=== PATIENT | female | born 1950 | race Caucasian/White ===

== ENCOUNTER 2016-08-16 08:00 | Inpatient (IN) | payer MEDICARE ==
--- NOTE | ~2016-08-16 | DS ---
Unit #: [id number] #: [id number] Patient: BANDAR SORENSEN [id number] [address] [address] [id number] I MR#: [id number] NAME: BANDAR SORENSEN ROOM: 450 Age: 66 Sex: F Admission Date: 08/16/2016 : 1950 Discharge Date: 08/19/2016 Attending Physician: Rashid Monzon M.D. Primary Care Physician: No Primary Care Physician DISCHARGE SUMMARY ADMITTING DIAGNOSIS Periprosthetic fracture, right femur, stress type. DISCHARGE DIAGNOSIS Periprosthetic fracture, right femur, stress type. PROCEDURES IN THE HOSPITAL None. HOSPITAL COURSE Patient was admitted on 08/16 after suffering severe pain in her right leg while at home transferring. She was admitted for pain control. Her CT scan showed a nondisplaced stress fracture, which already had cerclage wires in place. Her pain is subsiding and it is felt she can be discharged to rehab today. DISCHARGE INSTRUCTIONS 1. She is to remain nonweightbearing to toe-touch weightbearing in rehab. 2. Will check her pro-times on Tuesday and of next week. DISCHARGE MEDICATIONS She will be on: 1. Her pain medicine, which is [place] 10/325. 2. Coumadin 4 mg a day. CONDITION ON DISCHARGE Improved. DISPOSITION To rehab. Dictated by... Cleo Moy/zayda TD: 08/19/2016 10:12 JOB #: [id number] Unit #: [id number] #: [id number] Patient: BANDAR SORENSEN DISCHARGE SUMMARY X Rashid Monzon MD X DISCHARGE SUMMARY
--- NOTE | ~2016-08-16 | CT95 ---
[facility] A Service of [facility] & [facility] RADIOLOGY TEXT RESULTS PATIENT: BANDAR SORENSEN LOCATION: C4B 450-01 : 54 UNIT #: [id number] AGE: [address]: Rashid Monzon MD SEX: F ORDER DR: [id number] [facility] [address] [facility] [place], [place] [address] [id number] I MR#: [id number] Acc #: [id number] NAME: BANDAR SORENSEN : 1950 SEX: F STUDY DATE/TIME: 08/16/2016 18:11 UNIT: C4B ROOM: 450 STUDY DESCRIPTION: CT Lower Ext Rt Wo Cont Attending Physician: Rashid Monzon M.D. Ordering Physician: Rashid Monzon M.D. Primary Care Physician: Primary Care Physician No MEDICAL IMAGING REPORT This report is preliminary unless electronic signature is present EXAM CT right femur without contrast 08/16/2016 HISTORY 66-year-old female with right hip pain since 07/16/2016. Right hip hardware failure and periprostatic fracture. Patient is now status post revision right hip arthroplasty and proximal femur fixation. TECHNIQUE Helical scan performed through the right femur without IV contrast. Coronal and sagittal reformatted images. Metal reduction techniques were maximized. This CT examination was performed with one or more of the following radiation dose reduction techniques: automatic exposure control, adjustment of mA and/or kV according to patient size, and iterative reconstruction. FINDINGS There are postsurgical changes from revision right hip arthroplasty. There is a buttressing bone graft along the lateral aspect of the proximal femoral shaft with multiple cerclage wires. There is a nondisplaced stellate fracture involving the proximal femoral shaft at the level of the distal tip of the femoral component. No evidence of hardware loosening. The right hip is normally located. No significant right hip effusion. No soft tissue fluid collections are identified. There is generalized atrophy in the right quadriceps musculature. Small right knee effusion. Right knee arthroplasty is again noted. IMPRESSION 1. Postsurgical changes from recent right hip arthroplasty revision and proximal femoral shaft fracture fixation. There is a nondisplaced stellate fracture involving the proximal femoral shaft located at the level of the distal tip of the femoral prosthesis. No evidence of hardware loosening. [facility]. [facility] A Service of [facility] RADIOLOGY TEXT RESULTS PATIENT: BANDAR SORENSEN LOCATION: C4B 450-01 : 54 UNIT #: [id number] AGE: [address]: Rashid Monzon MD SEX: F ORDER DR: 2. No right hip effusion or drainable soft tissue fluid collections. 3. Right knee arthroplasty. Dictated by... Umesh Powell M.D. THIS IS AN ELECTRONICALLY VERIFIED REPORT Umesh Powell M.D. at 08/18/2016 3:56 PM OLGA/justin TD: 08/17/2016 12:03 JOB #: [id number] MEDICAL IMAGING REPORT COPY
--- NOTE | ~2016-08-16 | CR104 ---
[facility] A Service of [facility] RADIOLOGY TEXT RESULTS PATIENT: BANDAR SORENSEN LOCATION: C4B 450-01 : 54 UNIT #: [id number] AGE: [address]: Rashid Monzon MD SEX: F ORDER DR: [id number] [facility] [address] [facility]. [place], [place] [address] [id number] I MR#: [id number] Acc #: [id number] NAME: BANDAR SORENSEN : 1950 SEX: F STUDY DATE/TIME: 08/16/2016 18:43 UNIT: C4 ROOM: [facility] STUDY DESCRIPTION: CR Femur 1 View Rt Attending Physician: Rashid Monzon M.D. Ordering Physician: Rashid Monzon M.D. Primary Care Physician: Primary Care Physician No MEDICAL IMAGING REPORT This report is preliminary unless electronic signature is present EXAM Right femur, 08/16/2016 INDICATIONS 66-year-old female with a history of pain, cannot move the right leg for a month. Hardware failure, right hip surgery a month ago. TECHNIQUE Frontal view of the right femur was performed. COMPARISON 07/19/2016 FINDINGS The patient is status post total right hip replacement. Cerclage wires are associated with the femoral component of the appliance and there is a lateral fixation plate associated with the proximal aspect of the femur. There appears to be a lucent stellate fracture through the proximal to middle-third shaft femur, best seen on the more inferiorly positioned frontal image. Please see the separately dictated CT of the right femur, same date, for further details. There are advanced degenerative changes of the right knee and there is postoperative change of at least partial right knee replacement. IMPRESSION 1. Findings suspicious for a nondisplaced stellate fracture through the proximal to mid-third shaft right femur. Please see the separately dictated CT right femur, same date, for further details. 2. Surgical hardware in place as described. The bones are osteoporotic. 3. Advanced degenerative change of the right knee. Status post at least partial right knee replacement. [facility] A Service of [facility] RADIOLOGY TEXT RESULTS PATIENT: BANDAR SORENSEN LOCATION: [facility] 450- : 54 UNIT #: [id number] AGE: [address]: Rashid Monzon MD SEX: F ORDER DR: Dictated by... Aric Beck M.D. THIS IS AN ELECTRONICALLY VERIFIED REPORT Aric Beck M.D. at 08/17/2016 10:19 AM JAJA/dima TD: 08/17/2016 02:33 JOB #: [id number] MEDICAL IMAGING REPORT COPY
[~2016-08-16 08:00] MED LIST: HYDROCODON-ACE1 EAC7 PO
[2016-08-16] MEDS ORDERED: COUMADIN3 MG PO (09:31)
[2016-08-16] MEDS ORDERED: HYDROCODON-ACE1 EAC7 PO (11:43)
[2016-08-16] MEDS ORDERED: NORCO 10/3251 TAB PO (12:29)
[2016-08-17 03:46] LABS: PROTHROMBIN TIME (PATIENT) 21.9 SECONDS (9.6-11.5)
[2016-08-18 04:35] LABS: INR 1.6; PROTHROMBIN TIME (PATIENT) 17.2 SECONDS (9.6-11.5)
== END 2016-08-19 14:15 | DRG 544 ==
LOC: C4B 08:00
PROVIDERS: Orthopaedic Surgery
DX: M84.351A Stress fracture, right femur, initial encounter for fracture (principal); I10 Essential (primary) hypertension; M06.9 Rheumatoid arthritis, unspecified; Z96.641 Presence of right artificial hip joint
CPT/HCPCS: 73551; 73700; 85610; 97163; 97530; G8978-GP; G8979-GP; G8980-GP

== ENCOUNTER 2016-10-25 08:43 | Inpatient (IN) | payer MEDICARE ==
--- NOTE | ~2016-10-25 | DS ---
Unit #: [id number] #: [id number] Patient: BANDAR SORENSEN [id number] [facility] [address] [facility]. [place], [place] [address] [id number] I MR#: [id number] NAME: BANDAR SORENSEN ROOM: [facility] Age: 66 Sex: F Admission Date: 10/25/2016 : 1950 Discharge Date: Attending Physician: Rashid Monzon M.D. Referring Physician: Rashid Monzon M.D. Primary Care Physician: Generic Doctor Not In System DISCHARGE SUMMARY Date of discharge planned for 10/29/2016. ADMITTING PHYSICIAN Dr. Rashid Monzon. CONSULT PHYSICIAN HIPS for medical management. REASON FOR ADMISSION Periprosthetic fracture right femur with angulation. PROCEDURE Revision right total hip with long stem. HOSPITAL COURSE The patient was admitted to [facility] with a history of stress fracture right femur at the tip of the femoral stem of her right total hip. The patient ultimately had undergone a right total hip revision surgery with a long stem. The patient has recovered a little slow but does seem to be doing much better today. The patient is toe touch weightbearing. Today, her vital signs are temperature 98, blood pressure 97/38, heart rate 72, respirations 18. Her incision is healing well. Neurovascular exam is intact. She has 2+ pulses in the lower extremity. Again, the patient has been working with physical therapy and is toe touch weightbearing. The plan is to send the patient home tomorrow. This is at the request of the patient. The only way we will send her home is if she is safe with physical therapy and cleared medically for home tomorrow. The patient will be on Coumadin. Dose will be adjusted in the morning. DISPOSITION Home. She will need to go by ambulance for medical necessity. PERTINENT LABS Her PT was 20.5. INR today is 1.9. WBC 6.9. Hemoglobin is 8.5. MEDICATIONS She will be on her regular home medications with the addition of Coumadin and [place] for pain control. FOLLOWUP INSTRUCTIONS 1. The patient will be followed by [facility]. 2. She will need PT and INR on 10/29, 11/01, 11/04, 11/08, 11/11, 11/16 Unit #: [id number] #: [id number] Patient: BANDAR SORENSEN and 11/18. Call the office at [phone] or fax to Robert at [phone]. 3. The patient will need skin kameron removed on 11/08/2016 and Steri-Strips placed 1/4" apart for one week. 4. The patient is toe touch weightbearing right lower extremity. 5. The patient should wear MIRA hose during the day and off at night. 6. The patient should not shower until the day after kameron removed. 7. The patient will continue physical therapy for safety, home knowledge, home exercise program, dislocation precaution and progressive ambulation. 8. The patient will definitely be on a walker and toe touch weightbearing. 9. We will see the patient back in the office in four weeks. Dictated by... Khoa Chun P.A.-C- for Cleo Moy TD: 10/28/2016 13:14 JOB #: [id number] DISCHARGE SUMMARY Page 1 of 1 X X DISCHARGE SUMMARY
--- NOTE | ~2016-10-25 | OR ---
Unit #: [id number] #: [id number] Patient: BANADR SORENSEN [id number] [address] [place], [place] [address] [id number] I MR#: [id number] NAME: BANDAR SORENSEN ROOM: [facility] Date of Procedure: 10/25/2016 Admission Date: 10/25/2016 Surgeon: Rashid Monzon M.D. : 1950 Attending Physician: Rashid Monzon M.D. Referring Physician: Rashid Monzon M.D. OPERATIVE REPORT PREOPERATIVE DIAGNOSIS Periprosthetic femur fracture with angulation. POSTOPERATIVE DIAGNOSIS Periprosthetic femur fracture with angulation. PROCEDURE PERFORMED Revision of right total hip long stem. ASSISTANTS Lise Stewart and Aidan Maldonado. ANESTHESIA General. ESTIMATED BLOOD LOSS 800 mL. INDICATIONS FOR PROCEDURE This patient had a periprosthetic femur fracture that was treated with cerclage wires and strut grafting. She had a secondary twisting injury and now has an angulated deformity at the tip of her previous stem. She continues to have pain, could not ambulate, so she was brought to the hospital for conversion to a long stem. DESCRIPTION OF PROCEDURE The patient was brought to the holding room, given 1500 mg of vancomycin. This will be continued postop, but discontinued within 23 hours. She was then given general anesthetic and placed in decubitus position with the right side up. The right leg was prepped and draped in a sterile fashion. After this was done, the previous skin incision was used and extended distally. The subcutaneous dissected away. The fascia split longitudinally and then the vastus lateralis was split, and strut grafts were identified. The previous cerclage wires were removed. The strut grafts were removed and then the patient had an extended trochanteric osteotomy performed to the fracture. After this was done, the patient then had her previous component removed along with the cement. The cup appeared to be in good position and the polyethylene was not worn. This was a 28 mm head. We then reamed distally. We elected to use a fully porous coated AML stem, because the canal was quite small and the larger stem, . We then reamed the distal fragment with reamers up to a 13.5. At this point, we then opened the 8 inch 13.5 fully porous coated Unit #: [id number] #: [id number] Patient: BANDAR SORENSEN. We seated this into the distal fragment with the proper anteversion. It appeared to be quite proper We placed two cerclage wires around the proximal portion of the distal fracture. We re-wired the femur around the stem and an x-ray was obtained, that showed that the stem with standard head had appropriate leg length. The stability was gently tested and found to be appropriate. We then dislocated the hip, placed 28 standard head on the stem and was reduced. The wound was irrigated with bacitracin. The ropivacaine mixture was injected, and we then placed 60 mL cancellous chips in the osteotomy site and removed wire through the fibular strut grafts back around the midportion of the femur. The capsule was closed with 0 Vicryl. The vastus lateralis was closed with a running 0 Vicryl and passed it distally with a running 0 Vicryl and possibly with a #1 STRATAFIX suture. The subcutaneous was closed with 0 and 2-0 Vicryl, kameron in the skin. Sterile dressing was applied. Abduction pillow positioned, and general anesthetic reversed. compliance assistant, Lise Stewart was present throughout the entire case. Dictated by... Cleo Moy/tyron TD: 10/26/2016 02:45 JOB #: [id number] OPERATIVE REPORT Page 1 of 1 X Rashid Monzon MD PROCEDURE OPERATIVE NOTE
--- NOTE | ~2016-10-25 | CR145 ---
[facility] A Service of [facility] & [facility] RADIOLOGY TEXT RESULTS PATIENT: BANDAR SORENSEN LOCATION: [place] [address]-01 : [birth year] UNIT #: [id number] AGE: [address]: Rashid Monzon MD SEX: F ORDER DR: [id number] [facility] [address]. [place], [place] [address] [id number] I MR#: [id number] Acc #: [id number] NAME: BANDAR SORENSEN : 1950 SEX: F STUDY DATE/TIME: 10/25/2016 18:28 UNIT: [facility] ROOM: [facility] STUDY DESCRIPTION: CR Hip 1 View Rt Attending Physician: Rashid Monzon M.D. Referring Physician: Rashid Monzon M.D. Ordering Physician: Rashid Monzon M.D. Primary Care Physician: Generic Doctor Not In System MEDICAL IMAGING REPORT This report is preliminary unless electronic signature is present EXAM Right hip 10/25/2016 HISTORY 66-year-old female postop right hip arthroplasty revision. COMPARISON Right hip 10/25/2016 FINDINGS Single AP view of the right hip demonstrates revision arthroplasty of the right hip, which spans a fracture of the proximal femoral shaft. No evidence of hardware complication. Surgical drains and skin clips overlie the operative field. IMPRESSION Stable postoperative changes status post revision right hip arthroplasty. Dictated by... Umesh Powell M.D. THIS IS AN ELECTRONICALLY VERIFIED REPORT Umesh Powell M.D. at 10/26/2016 4:44 PM OLGA/al TD: 10/26/2016 00:22 JOB #: [id number] MEDICAL IMAGING REPORT Page 1 of 1 COPY
--- NOTE | ~2016-10-25 | CR151 ---
[facility] A Service of [facility] & [facility] RADIOLOGY TEXT RESULTS PATIENT: BANDAR SORENSEN LOCATION: [place] [address]- : 52 UNIT #: [id number] AGE: [address]: Rashid Monzon MD SEX: F ORDER DR: [id number] [facility] [address] [facility]. [place], [place] [address] [id number] O MR#: [id number] Acc #: [id number] NAME: BANDAR SORENSEN : 1950 SEX: F STUDY DATE/TIME: 10/25/2016 10:11 UNIT: [facility] ROOM: STUDY DESCRIPTION: CR Hip Min 2 Views Rt Attending Physician: Rashid Monzon M.D. Referring Physician: Rashid Monzon M.D. Ordering Physician: Rashid Monzon M.D. Primary Care Physician: Generic Doctor Not In System MEDICAL IMAGING REPORT This report is preliminary unless electronic signature is present EXAM Right hip HISTORY Preop right hip surgery. Symptoms began 4 months ago. Fell. Right hip replacement. Right hip/femur fracture and surgery. FINDINGS AP radiograph of the pelvis presented with frog leg views of the right hip and femur. The distal femur is not included in all case of view. Comparison 08/24/2016. I believe there is acute on chronic fracture at junction of the proximal and middle thirds of the right femur at the level of the lowest/most distal preexisting cerclage wire at this location. The acute fracture shows distraction by about up to 1 cm and there is moderate medial angulation of the distal fracture fragment. There is evidence of prior bone graft placement along the proximal femur. There is evidence of callus formation at the fracture plane. Status post bilateral hip arthroplasty. The orthopedic hardware at level of the bilateral hips appears intact and normally aligned. The bony ring of pelvis is intact. Chronic changes in the left acetabulum. The periarticular soft tissues show some evidence of edema on the right. The visualized bowel gas pattern is normal. Multiple calcified phleboliths in the pelvis. Dictated by... Fran Delgado M.D. THIS IS AN ELECTRONICALLY VERIFIED REPORT Fran Delgado M.D. at 10/26/2016 3:50 PM TATI/justin [facility] A Service of [facility] & [facility] RADIOLOGY TEXT RESULTS PATIENT: BANDAR SORENSEN LOCATION: [place] [address] : [birth year] UNIT #: [id number] AGE: [address]: Rashid Monzon MD SEX: F ORDER DR: TD: 10/25/2016 12:01 JOB #: [id number] MEDICAL IMAGING REPORT Page 1 of 1 COPY
--- NOTE | ~2016-10-25 | XA166 ---
[facility] A Service of [facility] & [facility] RADIOLOGY TEXT RESULTS PATIENT: BANDAR SORENSEN LOCATION: C4B 451 : 52 UNIT #: [id number] AGE: [address]: Rashid Monzon MD SEX: F ORDER DR: [id number] [facility] [address] [facility]. [place], [place] [address] [id number] I MR#: [id number] Acc #: [id number] NAME: BANDAR SORENSEN : 1950 SEX: F STUDY DATE/TIME: 10/27/2016 10:27 UNIT: C4 ROOM: [facility] STUDY DESCRIPTION: XA PICC Line Placement WO Port Attending Physician: Rashid Monzon M.D. Referring Physician: Rashid Monzon M.D. Ordering Physician: Ed Doctor [id number] [facility] Primary Care Physician: [facility] Doctor Not In System MEDICAL IMAGING REPORT This report is preliminary unless electronic signature is present EXAM PICC line placement INDICATION IV antibiotics. PRE-PROCEDURE The procedure was explained to the patient and/or patient electroplating sales representative including risks, benefits, potential complications and potential for alternative forms of treatment. Informed consent was obtained, and prior to initiating the procedure a formal timeout procedure was performed. PROCEDURE Using full standard sterile barrier technique, including caps, gowns, gloves, masks, as well as sterile skin preparation and standard sterile draping, the right arm was prepped and draped in the usual fashion, and real-time sterile ultrasound guidance was used to localize an arm vein and to confirm vessel patency. A hard copy ultrasound image was recorded. After local anesthesia with 1% Xylocaine, the vein was punctured using real-time sterile ultrasound guidance, and an 0.018 guidewire was advanced into the superior vena cava, using fluoroscopic guidance. A 37 cm double-lumen 5-Occitan PICC was then measured and deployed with the tip positioned in the superior vena cava. The position of the line was documented with a radiographic image. The line was secured in place with an adhesive dressing and an antibiotic patch was applied. Total fluoro time was 0.2 minutes. A single fluoroscopic spot image was obtained. The reference air kerma is 3 mGy/cm. IMPRESSION 1. Successful placement of a 38 cm double lumen 5-Occitan Power PICC via the right arm under ultrasound and fluoroscopic guidance. The tip of [facility] A Service of [facility] RADIOLOGY TEXT RESULTS PATIENT: BANDAR SORENSEN LOCATION: [place] [address] : [birth year] UNIT #: [id number] AGE: [address]: Rashid Monzon MD SEX: F ORDER DR: the PICC is in good position in the superior vena cava. 2. A single fluoroscopic spot image was obtained. Dictated by... Prieto Young M.D. THIS IS AN ELECTRONICALLY VERIFIED REPORT Prieto Young M.D. at 10/28/2016 4:52 PM ARLINE/stevenson TD: 10/27/2016 19:28 JOB #: [id number] MEDICAL IMAGING REPORT Page 1 of 1 COPY
--- NOTE | ~2016-10-25 | CR145 ---
[facility] A Service of [facility] & [facility] RADIOLOGY TEXT RESULTS PATIENT: BANDAR SORENSEN LOCATION: C4B 451-01 : [birth year] UNIT #: [id number] AGE: [address]: Rashid Monzon MD SEX: F ORDER DR: [id number] [facility] [address] [facility]. [place], [place] [address] [id number] I MR#: [id number] Acc #: [id number] NAME: BANDAR SORENSEN : 1950 SEX: F STUDY DATE/TIME: 10/25/2016 16:11 UNIT: [facility] ROOM: [facility] STUDY DESCRIPTION: CR Hip 1 View Rt Attending Physician: Rashid Monzon M.D. Referring Physician: Rashid Monzon M.D. Ordering Physician: Rashid Monzon M.D. Primary Care Physician: Generic Doctor Not In System MEDICAL IMAGING REPORT This report is preliminary unless electronic signature is present EXAM Right hip series 10/25/2016 HISTORY Right hip pinning. FINDINGS 2 AP radiographs of the right hip and femur are presented. Comparison 10/25/2016 1011 hours. The patient is undergoing revision of prior open reduction internal fixation right mid femoral fracture. Patient is status post prior right hip arthroplasty. The femoral stem component has been replaced with a longer stem spanning the mid femoral shaft fracture plane. The femoral shaft fracture fragments appear in near-anatomic alignment on these images. Multiple cerclage wires along the proximal to mid femoral shaft. The ball component of the femoral stem does not appear to be in place at this time. The acetabular component of right hip arthroplasty is unchanged. Open surgical bed along the proximal to mid femur. No new bony abnormality. Dictated by... Fran Delgado M.D. THIS IS AN ELECTRONICALLY VERIFIED REPORT Fran Delgado M.D. at 10/26/2016 3:50 PM TATI/justin TD: 10/26/2016 12:44 JOB #: [id number] MEDICAL IMAGING REPORT Page 1 of 1 COPY
--- NOTE | ~2016-10-25 | CO ---
Unit #: [id number] #: [id number] Patient: BANDAR SORENSEN [id number] [facility]. [place], [place] [address] [id number] O MR#: [id number] NAME: BANDAR SORENSEN ROOM: Age: 66 Sex: F Admission Date: 10/25/2016 : 1950 Attending Physician: Rashid Monzon M.D. Primary Care Physician: Generic Doctor Not In System Requesting Physician: Rashid Monzon M.D. Consultation Date: 10/25/2016 CONSULTATION REPORT REASON FOR CONSULTATION Preoperative evaluation. HISTORY OF PRESENT ILLNESS The patient is a 66-year-old female with a past medical history of hypertension, hyperlipidemia, chronic anemia, CHF, diabetes, rheumatoid arthritis, psoriatic arthritis, GERD, osteoarthritis, Borjas palsy, who is being seen in the preop area for preop evaluation. The patient is scheduled for revision of right total hip this afternoon. Of note, the patient was hospitalized at [facility] August 16 through August 19, 2016, for periprosthetic fracture of the right femur. She was admitted for pain control and discharged to rehab. The patient states that she followed up with Dr. Monzon and was noted to have a displaced fracture although she has been non-weight bearing for several months. She states that she has had pain in the right hip. Otherwise, she denies any fever. No cough or cold symptoms, no chest pain, no difficulty breathing. She does have palpitations that are not a new problem. She states she has had decreased appetite and may have lost a few pounds. She denies any constipation or diarrhea, no urinary symptoms, no blood in the stool or black, tarry stool. She denies ever having problems with anesthesia. 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 She denies any blood in the stool or black, tarry stool. She denies ever being told that she has sleep apnea. She has never had a sleep study. PAST MEDICAL HISTORY 1. Admission to [facility] August 16 through August 19, 2016, for periprosthetic fracture involving the right femur. She was admitted for pain control and discharged to rehab. 2. Congestive heart failure. The patient states that at the age of 30 she was possibly told that she was "retaining fluid." She was seen in consultation by cardiology on July 16, 2016, for cardiac clearance. An echocardiogram was done. There are no results in [employer]. She was cleared from their standpoint at that time. The patient had an echocardiogram July 09, 2016, that was technically limited but showed an ejection fraction of 50% to 55% with moderate septal hypokinesis and no significant valvular heart disease. 3. 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 4. Diabetes with a hemoglobin A1c of 6.5 on July 16, 2016. 5. Rheumatoid arthritis, followed by a data solutions architect in [place]. 6. Psoriatic arthritis. 7. Hypertension. 8. Hyperlipidemia. Unit #: [id number] #: [id number] Patient: BANDAR SORENSEN 9. GERD. 10. Osteoarthritis. 11. 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 PAST SURGICAL HISTORY 1. Right total hip arthroplasty. 2. Left total hip arthroplasty with three (1) revisions. 3. Right total knee arthroplasty. 4. Bilateral ankle arthroplasties. 5. Dental surgery. SOCIAL HISTORY The patient lives with her . There is no tobacco or alcohol use. She has been non-weight bearing for several months. She denies tobacco or alcohol use. FAMILY HISTORY Notable for her dad having myocardial infarction in his 60s. He also had lung cancer. Her mother had ovarian cancer. ALLERGIES Phenothiazines, sulfa, Keflex, erythromycin, clavulanic acid, iodine, amoxicillin, dextromethorphan, promethazine, Bystolic, latex. MEDICATIONS Home medications include: 1. Xanax. 2. Hydrocodone. 3. Acetaminophen. 4. Flonase. 5. Lopressor. 6. Plaquenil. 7. Catapres. 8. Folic acid. 9. Relafen. 10. Pravachol. 11. Protonix. REVIEW OF SYSTEMS A complete review of systems is negative except as indicated in the HPI. The patient states that her Relafen was discontinued per Dr. Monzon's order in preparation for surgery. DIAGNOSTIC STUDIES CARDIOVASCULAR: There is an EKG from July 19, 2016, that showed normal sinus rhythm with a rate of 100 beats/minute. LABORATORY: Labs are pending. PHYSICAL EXAMINATION VITAL SIGNS: Temperature is 96.9, heart rate 66, respirations 18, blood pressure 146/58. Oxygen saturation was 100% on room air. GENERAL: The patient is a very pleasant female who is awake and alert, in no acute distress. HEENT: The head is atraumatic. Mucous membranes are moist. NECK: Supple. Trachea is midline. CARDIOVASCULAR: Regular rate and rhythm. LUNGS: Clear to auscultation bilaterally with no increased work of Unit #: [id number] #: [id number] Patient: BANDAR SORENSEN breathing. ABDOMEN: Soft, nontender, with bowel sounds present in all four quadrants. EXTREMITIES: The right lower extremity is in a knee immobilizer. NEURO: The patient is awake and alert. She follows commands. PSYCH: Mood and affect are normal. The patient is cooperative. SKIN: Skin of examined areas is warm and dry. ASSESSMENT The patient is a 66-year-old female with: 1. Fracture of the right femur: The patient's revised Barrios Cardiac Risk Index is consistent with a 1% rate of cardiac nonfatal myocardial infarction and nonfatal cardiac risk based on the history of congestive heart failure. The patient was seen by cardiology in June 2016, and was cleared from a cardiac standpoint. Her ejection fraction in June was noted to be 50% to 55%. 2. Hypertension. 3. Hyperlipidemia. 4. Chronic anemia: The patient's hemoglobin was 9.4 on July 22, 2016. It is 9.4 today. 5. Congestive heart failure with an ejection fraction of 50% to 55% noted on echocardiogram in June 2016. 6. Diabetes with a hemoglobin A1c of 6.5 on July 16, 2016. 7. Rheumatoid arthritis, maintained on Plaquenil and Relafen, followed by data solutions architect in [place]. 8. Psoriatic arthritis. 9. Gastroesophageal reflux disease. 10. Osteoarthritis. 11. Borjas palsy. 12. Increased risk of obstructive sleep apnea. PLAN 1. Regarding the surgery planned for this afternoon, the patient's revised Barrios Cardiac Risk Index is as discussed above. She was cleared by cardiology in June. An EKG is currently pending. 2. Regarding diabetes, I have ordered low dose sliding scale insulin as well as Accu-Cheks. 3. Regarding increased risk of obstructive sleep apnea, I have ordered the obstructive sleep apnea protocol. Thank you very much for the consultation. We will follow the patient along closely with you. Dictated by... Cleo Mendez/jodie TD: 10/25/2016 11:35 JOB #: [id number] Unit #: [id number] #: [id number] Patient: BANDAR SORENSEN CONSULTATION REPORT Page 1 of 1 X Mary Shukla MD X CONSULTATION REPORT
--- NOTE | ~2016-10-25 | EKG ---
PATIENT: BANDAR SORENSEN UNIT #: [id number] Ventricular Rate: 74 BPM Atrial Rate: 74 BPM P-R Interval: 174 ms QRS Duration: 90 ms Q-T Interval: 430 ms QTC Calculation(Bezet): 477 ms P Burton: 21 degrees Calculated R Burton: -13 degrees Calculated T Burton: 31 degrees Diagnosis Line: Normal sinus rhythm Diagnosis Line: Normal ECG Diagnosis Line: When compared with ECG of 19-JUL-2016 15:11, Diagnosis Line: No significant change was found Diagnosis Line: Confirmed by LIZABETH BOUCHER MD ([id number]) on 10/27/2016 Diagnosis Line: 9:45:20 AM INTERPRETING MD: SANDER WHITE
--- NOTE | ~2016-10-25 | XA166 ---
[facility] A Service of [facility] & [facility] RADIOLOGY TEXT RESULTS PATIENT: BANDAR SORENSEN LOCATION: C4B 451 : [birth year] UNIT #: [id number] AGE: [address]: Rashid Monzon MD SEX: F ORDER DR: [id number] [facility] [address]. [place], [place] [address] [id number] I MR#: [id number] Acc #: [id number] NAME: BANDAR SORENSEN : 1950 SEX: F STUDY DATE/TIME: 10/25/2016 10:22 UNIT: C4 ROOM: [facility] STUDY DESCRIPTION: XA PICC Line Placement WO Port Attending Physician: Rashid Monzon M.D. Referring Physician: Rashid Monzon M.D. Ordering Physician: Rashid Monzon M.D. Primary Care Physician: Alisa Not Listed MEDICAL IMAGING REPORT This report is preliminary unless electronic signature is present EXAM Left-sided PICC line placement. INDICATION Need for IV access in a patient who is to undergo right hip surgery on October 25, 2016. PROCEDURE The procedure was explained to the patient including risks, benefits, potential complications, and potential for alternative forms of treatment. Informed consent was obtained and prior the patient initiating the procedure, a formal time-out procedure was performed. Using all elements of maximal sterile barrier technique including hand hygiene, caps, sterile gowns, and gloves and masks, the right arm was prepped with 2% chlorhexidine for cutaneous antisepsis and covered with a large sterile sheet. Real-time sterile ultrasound guidance was used to localize the right basilic vein which was found be patent and compressible. Hard copy ultrasound image was obtained. After local anesthesia with 1% Xylocaine, the vein was punctured using real time sterile ultrasound guidance, however, I was unable to advance a wire through this vessel despite multiple efforts. Patient's right brachial vein is of extremely small caliber. At this point, I turned my attention to the left arm. Again, using all elements of maximal sterile barrier technique, including hand hygiene, caps, sterile gowns, and gloves and masks, the left arm was prepped with 2% chlorhexidine for cutaneous antisepsis and covered with a large sterile sheet. Real-time sterile ultrasound guidance was used to localize the left basilic vein which was found to be patent and compressible. A hard copy ultrasound image was obtained. After local anesthesia with 1% Xylocaine, a vein was punctured using real-time sterile ultrasound guidance. An 0.018 guidewire was advanced into the left axillary vein. I was unable to advance the wire any further despite multiple efforts. A peel-away sheath was placed and STS. [facility] A Service of [facility] RADIOLOGY TEXT RESULTS PATIENT: BANDAR SORENSEN LOCATION: [place] [address] : [birth year] UNIT #: [id number] AGE: [address]: Rashid Monzon MD SEX: F ORDER DR: the catheter was advanced over the wire and positioned within the left axillary vein. Following placement it flushed and aspirated easily. Total fluoroscopy time 0.3 minutes. AK was 2 mGy. IMPRESSION Successful placement of a left-sided PICC line which terminates within the left axillary vein. Ultrasound and fluoroscopy where used during the placement of the catheter and permanent images were saved. Dictated by... Cathie Donovan M.D. THIS IS AN ELECTRONICALLY VERIFIED REPORT Cathie Donovan M.D. at 10/26/2016 4:56 PM AFF/tito TD: 10/26/2016 10:56 JOB #: [id number] MEDICAL IMAGING REPORT Page 1 of 1 COPY
[~2016-10-25 08:43] MED LIST changes: +COUMADIN3 MG PO; +NORCO 10/3251 TAB PO
[2016-10-25 10:17] LABS: BASOPHIL# 0.1 X10e3 (0-0.3); BASOPHIL% 0.6 % (0-2.5); EOSINOPHIL# 0.3 X10e3 (0-0.7); EOSINOPHIL% 3.5 % (0.0-7.0); HEMATOCRIT 30.9 % (35.0-45.0); HEMOGLOBIN 9.4 gm/dL (12.0-16.0); LYMPHOCYTE# 1.5 X10e3 (1.0-3.5); LYMPHOCYTE% 14.9 % (17.0-45.0); MEAN CELL VOLUME 78.4 FL (83-96); MEAN CORPUSCULAR HEMOGLOBIN 23.9 PG (28-34); MEAN CORPUSCULAR HGB CONC 30.5 g/dL (30-36); MEAN PLATELET VOLUME 8.9 FL (6.5-11.5); MONOCYTE# 0.7 X10e3 (0-1.0); MONOCYTE% 6.6 % (3.0-12.0); NEUTROPHIL# 7.4 X10e3 (1.5-7.1); NEUTROPHIL% 74.4 % (40-75); PLATELET COUNT 236 X10e3 (140-420); RED BLOOD COUNT 3.94 X10e (3.90-5.30); RED CELL DISTRIBUTION WIDTH 17.7 % (11.0-15.5)
[2016-10-25 10:18] LABS: DIFF IND NO
[2016-10-25 10:31] LABS: PROTHROMBIN TIME (PATIENT) 10.7 SECONDS (9.6-11.5)
[2016-10-25 10:41] LABS: BILIRUBIN,TOTAL 0.2 mg/dL (0.2-2.0); CALCIUM SERUM 9.3 mg/dL (8.4-10.2); CREATININE SERUM 1.1 mg/dL (0.6-1.4); POTASSIUM 4.1 mmol/L (3.5-5.1); PROTEIN TOTAL SERUM 6.8 g/dL (6.0-8.3)
[2016-10-25 10:43] LABS: URINE SOURCE CATH
[2016-10-25 10:51] LABS: CULTURE INDICATED? YES; URINE APPEARANCE CLEAR; URINE BACTERIA AUWI 4+ (NEGATIVE); URINE BILIRUBIN NEG (NEG); URINE BLOOD 1+ (NEG); URINE COLOR YELLOW; URINE GLUCOSE NEG (NEG); URINE KETONE NEG (NEG); URINE LEUKOCYTE ESTERASE 1+ (NEG); URINE NITRATE POS (NEG); URINE PROTEIN NEG (NEG); URINE SPECIFIC GRAVITY 1.019 (1.003-1.035); URINE SQUAMOUS EPITHELIAL CELL MOD /[HPF]
[2016-10-25] MEDS ORDERED: HYDROCODON-ACE1 EAC7 PO (14:00)
[2016-10-25] MEDS ORDERED: FLONASE 0.05% N16 GM (19:28)
[2016-10-25] MEDS ORDERED: LOPRESSOR PO (19:29)
[2016-10-25] MEDS ORDERED: PLAQUENIL200 MG PO (19:29)
[2016-10-25] MEDS ORDERED: CATAPRES0.1 M1 PO (19:37)
[2016-10-25] MEDS ORDERED: RELAFEN PO (19:38)
[2016-10-25] MEDS ORDERED: FOLIC ACID1 MG PO (19:38)
[2016-10-25] MEDS ORDERED: PRAVACHOL PO (19:39)
[2016-10-25] MEDS ORDERED: PROTONIX PO (19:40)
[2016-10-25] MEDS ORDERED: XANAX0.5 MG PO (19:40)
[2016-10-25 23:40] LABS: BASOPHIL% 0.2 % (0-2.5); EOSINOPHIL% 0.1 % (0.0-7.0); LYMPHOCYTE# 0.7 X10e3 (1.0-3.5); LYMPHOCYTE% 5.7 % (17.0-45.0); MEAN CORPUSCULAR HEMOGLOBIN 25.4 PG (28-34); MEAN CORPUSCULAR HGB CONC 31.8 g/dL (30-36); MEAN PLATELET VOLUME 7.1 FL (6.5-11.5); MONOCYTE# 0.6 X10e3 (0-1.0); MONOCYTE% 5.1 % (3.0-12.0); NEUTROPHIL# 10.1 X10e3 (1.5-7.1); NEUTROPHIL% 88.9 % (40-75); PLATELET COUNT 191 X10e3 (140-420); RED BLOOD COUNT 2.87 X10e (3.90-5.30); WHITE BLOOD COUNT 11.4 X10e3 (4.0-10.5)
[2016-10-25 23:42] LABS: DIFF IND YES; HEMOGLOBIN 7.3 gm/dL (12.0-16.0)
[2016-10-26 00:21] LABS: ANISOCYTOSIS SL; HYPOCHROMIA SL; MICROCYTOSIS MOD; OVALOCYTES PRESENT; PLATELET ESTIMATE NORMAL (NORMAL)
[2016-10-26 04:20] LABS: BASOPHIL% 0.5 % (0-2.5); DIFF IND NO; EOSINOPHIL% 0.1 % (0.0-7.0); HEMATOCRIT 25.1 % (35.0-45.0); LYMPHOCYTE# 0.9 X10e3 (1.0-3.5); LYMPHOCYTE% 10.1 % (17.0-45.0); MEAN CORPUSCULAR HEMOGLOBIN 25.1 PG (28-34); MEAN CORPUSCULAR HGB CONC 31.8 g/dL (30-36); MEAN PLATELET VOLUME 7.1 FL (6.5-11.5); MONOCYTE# 0.5 X10e3 (0-1.0); MONOCYTE% 5.8 % (3.0-12.0); NEUTROPHIL# 7.6 X10e3 (1.5-7.1); NEUTROPHIL% 83.5 % (40-75); PLATELET COUNT 191 X10e3 (140-420); RED BLOOD COUNT 3.18 X10e (3.90-5.30); RED CELL DISTRIBUTION WIDTH 17.4 % (11.0-15.5); WHITE BLOOD COUNT 9.1 X10e3 (4.0-10.5)
[2016-10-26 04:34] LABS: INR 1.5
[2016-10-26 04:39] LABS: ALBUMIN SERUM 1.7 g/dL (3.5-5.0); CALCIUM SERUM 6.4 mg/dL (8.4-10.2); CREATININE SERUM 0.8 mg/dL (0.6-1.4); POTASSIUM 3.6 mmol/L (3.5-5.1); PROTEIN TOTAL SERUM 3.8 g/dL (6.0-8.3); PROTHROMBIN TIME (PATIENT) 16.2 SECONDS (9.6-11.5)
[2016-10-27 03:42] LABS: BASOPHIL% 0.3 % (0-2.5); HEMATOCRIT 20.7 % (35.0-45.0); LYMPHOCYTE# 0.6 X10e3 (1.0-3.5); LYMPHOCYTE% 10.8 % (17.0-45.0); MEAN CELL VOLUME 79.2 FL (83-96); MEAN CORPUSCULAR HEMOGLOBIN 25.5 PG (28-34); MEAN CORPUSCULAR HGB CONC 32.3 g/dL (30-36); MEAN PLATELET VOLUME 7.4 FL (6.5-11.5); MONOCYTE# 0.3 X10e3 (0-1.0); MONOCYTE% 6.3 % (3.0-12.0); NEUTROPHIL# 4.5 X10e3 (1.5-7.1); NEUTROPHIL% 82.6 % (40-75); PLATELET COUNT 157 X10e3 (140-420); RED BLOOD COUNT 2.61 X10e (3.90-5.30); RED CELL DISTRIBUTION WIDTH 18.2 % (11.0-15.5); WHITE BLOOD COUNT 5.5 X10e3 (4.0-10.5)
[2016-10-27 03:45] LABS: INR 2.6
[2016-10-27 03:46] LABS: DIFF IND YES; HEMOGLOBIN 6.7 gm/dL (12.0-16.0)
[2016-10-27 03:49] LABS: BUN/CREATININE RATIO 21.25; CALCIUM SERUM 7.7 mg/dL (8.4-10.2); CREATININE SERUM 0.8 mg/dL (0.6-1.4); POTASSIUM 4.1 mmol/L (3.5-5.1)
[2016-10-27 03:50] LABS: PROTHROMBIN TIME (PATIENT) 27.9 SECONDS (9.6-11.5)
[2016-10-27 04:58] LABS: ANISOCYTOSIS MOD; HYPOCHROMIA MOD; PLATELET ESTIMATE NORMAL (NORMAL); POIKILOCYTOSIS MOD; ROULEAUX SLIGHT
[2016-10-27 08:10] LABS: BASOPHIL% 0.3 % (0-2.5); DIFF IND NO; HEMATOCRIT 31.5 % (35.0-45.0); HEMOGLOBIN 10.1 gm/dL (12.0-16.0); LYMPHOCYTE# 1.1 X10e3 (1.0-3.5); LYMPHOCYTE% 14.5 % (17.0-45.0); MEAN CELL VOLUME 80.6 FL (83-96); MEAN CORPUSCULAR HEMOGLOBIN 25.8 PG (28-34); MEAN PLATELET VOLUME 7.3 FL (6.5-11.5); MONOCYTE# 0.6 X10e3 (0-1.0); MONOCYTE% 7.3 % (3.0-12.0); NEUTROPHIL# 6.1 X10e3 (1.5-7.1); NEUTROPHIL% 77.9 % (40-75); PLATELET COUNT 201 X10e3 (140-420); RED CELL DISTRIBUTION WIDTH 17.7 % (11.0-15.5); WHITE BLOOD COUNT 7.8 X10e3 (4.0-10.5)
[2016-10-28 03:51] LABS: BASOPHIL% 0.7 % (0-2.5); EOSINOPHIL# 0.2 X10e3 (0-0.7); EOSINOPHIL% 2.9 % (0.0-7.0); HEMATOCRIT 27.2 % (35.0-45.0); HEMOGLOBIN 8.5 gm/dL (12.0-16.0); LYMPHOCYTE# 1.3 X10e3 (1.0-3.5); LYMPHOCYTE% 19.4 % (17.0-45.0); MEAN CELL VOLUME 82.1 FL (83-96); MEAN CORPUSCULAR HEMOGLOBIN 25.7 PG (28-34); MEAN CORPUSCULAR HGB CONC 31.4 g/dL (30-36); MEAN PLATELET VOLUME 7.5 FL (6.5-11.5); MONOCYTE# 0.5 X10e3 (0-1.0); MONOCYTE% 7.6 % (3.0-12.0); NEUTROPHIL# 4.8 X10e3 (1.5-7.1); NEUTROPHIL% 69.4 % (40-75); PLATELET COUNT 184 X10e3 (140-420); RED BLOOD COUNT 3.32 X10e (3.90-5.30); RED CELL DISTRIBUTION WIDTH 17.8 % (11.0-15.5); WHITE BLOOD COUNT 6.9 X10e3 (4.0-10.5)
[2016-10-28 03:52] LABS: DIFF IND NO
[2016-10-28 04:25] LABS: INR 1.9; PROTHROMBIN TIME (PATIENT) 20.5 SECONDS (9.6-11.5)
[2016-10-29 03:43] LABS: BASOPHIL% 0.6 % (0-2.5); EOSINOPHIL# 0.2 X10e3 (0-0.7); EOSINOPHIL% 3.8 % (0.0-7.0); HEMATOCRIT 27.7 % (35.0-45.0); HEMOGLOBIN 8.8 gm/dL (12.0-16.0); LYMPHOCYTE# 1.1 X10e3 (1.0-3.5); LYMPHOCYTE% 18.3 % (17.0-45.0); MEAN CELL VOLUME 80.6 FL (83-96); MEAN CORPUSCULAR HEMOGLOBIN 25.6 PG (28-34); MEAN CORPUSCULAR HGB CONC 31.8 g/dL (30-36); MEAN PLATELET VOLUME 7.2 FL (6.5-11.5); MONOCYTE# 0.5 X10e3 (0-1.0); MONOCYTE% 8.1 % (3.0-12.0); NEUTROPHIL# 4.1 X10e3 (1.5-7.1); NEUTROPHIL% 69.2 % (40-75); PLATELET COUNT 189 X10e3 (140-420); RED BLOOD COUNT 3.44 X10e (3.90-5.30); RED CELL DISTRIBUTION WIDTH 18.1 % (11.0-15.5); WHITE BLOOD COUNT 5.9 X10e3 (4.0-10.5)
[2016-10-29 03:52] LABS: DIFF IND NO
[2016-10-29 04:15] LABS: INR 1.6; PROTHROMBIN TIME (PATIENT) 17.2 SECONDS (9.6-11.5)
[2016-10-29] MEDS ORDERED: FERROUS GLUCON324 M2 PO (11:16)
[2016-10-29] MEDS ORDERED: HYDROCODON-ACE1 EAC5 PO (11:17)
[2016-10-29] MEDS ORDERED: ACETAMINOPHEN325 MG PO (11:18)
[2016-10-29] MEDS ORDERED: COUMADIN5 MG PO (11:27)
== END 2016-10-29 12:46 | disposition home or self-care (01) | DRG 466 ==
LOC: CSUR 08:43 → CPACUOF 17:44 → C4B 17:44 → CPACUOF 18:43 → C4B 18:43 → CSUR 18:43 → C4B 18:44 → CPACUOF 18:44 → C4B 10-29 12:46
PROVIDERS: Family Medicine; Internal Medicine; Orthopaedic Surgery; Physician Assistant
PROC: 0SPR0JZ Removal of Synthetic Substitute from Right Hip Joint, Femoral Surface, Open Approach (ICD-10-PCS; 2016-10-25)
PROC: 30233N1 Transfusion of Nonautologous Red Blood Cells into Peripheral Vein, Percutaneous Approach (ICD-10-PCS; 2016-10-25)
PROC: 05H433Z Insertion of Infusion Device into Left Innominate Vein, Percutaneous Approach (ICD-10-PCS; 2016-10-25)
PROC: B51NYZA Fluoroscopy of Left Upper Extremity Veins using Other Contrast, Guidance (ICD-10-PCS; 2016-10-25)
PROC: B54NZZA Ultrasonography of Left Upper Extremity Veins, Guidance (ICD-10-PCS; 2016-10-25)
PROC: 0SRR0JZ Replacement of Right Hip Joint, Femoral Surface with Synthetic Substitute, Open Approach (ICD-10-PCS; principal; 2016-10-25 13:30)
PROC: 02HV33Z Insertion of Infusion Device into Superior Vena Cava, Percutaneous Approach (ICD-10-PCS; 2016-10-27)
PROC: B518YZA Fluoroscopy of Superior Vena Cava using Other Contrast, Guidance (ICD-10-PCS; 2016-10-27)
PROC: B548ZZA Ultrasonography of Superior Vena Cava, Guidance (ICD-10-PCS; 2016-10-27)
DX: M97.01XA Periprosthetic fracture around internal prosthetic right hip joint, initial encounter (principal); S72.91XA Unspecified fracture of right femur, initial encounter for closed fracture; E43 Unspecified severe protein-calorie malnutrition; I11.0 Hypertensive heart disease with heart failure; I50.32 Chronic diastolic (congestive) heart failure; D62 Acute posthemorrhagic anemia; N39.0 Urinary tract infection, site not specified; Z96.643 Presence of artificial hip joint, bilateral; E78.5 Hyperlipidemia, unspecified; D64.89 Other specified anemias; M06.9 Rheumatoid arthritis, unspecified; L40.50 Arthropathic psoriasis, unspecified; K21.9 Gastro-esophageal reflux disease without esophagitis; G51.0 Bell's palsy; M21.851 Other specified acquired deformities of right thigh; Z96.651 Presence of right artificial knee joint; Z96.662 Presence of left artificial ankle joint; Z96.661 Presence of right artificial ankle joint; K59.00 Constipation, unspecified; D50.9 Iron deficiency anemia, unspecified; B96.89 Other specified bacterial agents as the cause of diseases classified elsewhere; Z98.49 Cataract extraction status, unspecified eye; Z68.36 Body mass index [BMI] 36.0-36.9, adult
CPT/HCPCS: 73501; 73502; 76937; 77001; 80048; 80053; 81003; 82947; 85025; 85610; 85652; 86140; 86850; 86900; 86901; 86923; 87070; 87086; 87088; 87186; 93005; 94760; 94761; 97110; 97163; 97166; 97530; 97535; C1751; C1769; C1776; G8978-GP; G8979-GP; G8987-GO; G8988-GO; J0171; J0330; J0735; J1100; J1642; J1650; J1815; J1885; J1956; J2250; J2405; J2795; J3010; J3370; P9016

== ENCOUNTER → 2016-11-16 | Outpatient (CLI) | payer MEDICARE ==
[~2016-11-16] MED LIST changes: +ACETAMINOPHEN325 MG PO; +CATAPRES0.1 M1 PO; +COUMADIN5 MG PO; +FERROUS GLUCON324 M2 PO; +FLONASE 0.05% N16 GM; +FOLIC ACID1 MG PO; +HYDROCODON-ACE1 EAC5 PO; +LOPRESSOR PO; +PLAQUENIL200 MG PO; +PRAVACHOL PO; +PROTONIX PO; +RELAFEN PO; +XANAX0.5 MG PO
--- NOTE | ~2016-11-16 | CR151 ---
[facility] A Service of [facility] RADIOLOGY TEXT RESULTS PATIENT: BANDAR SORENSEN LOCATION: [facility] : [birth year] UNIT #: [id number] AGE: [address]: ZINA BARAHONA SEX: F ORDER DR: [id number] [facility]. [place], [place] [address] [id number] O MR#: [id number] Acc #: [id number] NAME: BANDAR SORENSEN : 1950 SEX: F STUDY DATE/TIME: 11/16/2016 12:47 UNIT: [facility] ROOM: STUDY DESCRIPTION: CR Hip Min 2 Views Rt Attending Physician: Yuniel Herron Referring Physician: Yuniel Herron Ordering Physician: Physician Non-Staff Primary Care Physician: Generic Doctor Not In System MEDICAL IMAGING REPORT This report is preliminary unless electronic signature is present EXAM AP pelvis and frog view of the right hip (2 images). DATE 11/16/2016 HISTORY Right hip replacement with long femoral stem on 10/25/2016. Follow up. Pain, unable to walk. COMPARISON AP right hip radiograph 10/25/2016. CT of the right femur 08/16/2016. FINDINGS Right total hip replacement changes are again noted, with long femoral stem component. Comminuted fracture of the proximal right femoral shaft redemonstrated, stabilized by multiple cerclage wires in satisfactory alignment for healing. Periosteal reaction is seen surrounding the proximal right femur suggesting developing callus formation, but fracture lines do remain. The hip remains appropriately located. Left hip replacement changes are present, with superior migration and remodelling of the hoopa bony acetabulum. Surgical wire is seen within the left groin region. Presumed heterotopic calcification within the proximal medial left thigh soft tissues adjacent to the prosthesis, and near the lateral margin of the prosthetic femoral head. Imaged lower lumbar spine appears within normal limits. Vascular calcifications are demonstrated within each thigh. IMPRESSION 1. Right hip arthroplasty changes. Signs of continued and increased periosteal reaction or callus formation adjacent to the proximal [facility] A Service of [facility] RADIOLOGY TEXT RESULTS PATIENT: BADNAR SORENSEN LOCATION: [facility] #: [id number] : [birth year] UNIT #: [id number] AGE: [address]: ZINA BARAHONA SEX: F ORDER DR: femoral shaft, although fracture line does remain. 2. The prosthetic hip joints remain appropriately located. There is chronic-appearing remodelling of the hoopa left acetabulum with superior migration of the left femoral prosthesis. Dictated by... Shameka Kyle M.D. THIS IS AN ELECTRONICALLY VERIFIED REPORT Shameka Kyle M.D. at 11/17/2016 2:10 PM [facility]/dima TD: 11/16/2016 22:41 JOB #: [id number] MEDICAL IMAGING REPORT Page 1 of 1 COPY
--- NOTE | ~2016-11-16 | CR107 ---
[facility] A Service of [facility] RADIOLOGY TEXT RESULTS PATIENT: BANDAR SORENSEN LOCATION: [facility] : [birth year] UNIT #: [id number] AGE: [address]: ZINA BARAHONA SEX: F ORDER DR: [id number] [facility] [address] [place], [place] [address] [id number] O MR#: [id number] Acc #: [id number] NAME: BANDAR SORENSEN : 1950 SEX: F STUDY DATE/TIME: 11/16/2016 12:48 UNIT: [facility] ROOM: STUDY DESCRIPTION: CR Femur 2 Views Rt Attending Physician: Yuniel Herron Referring Physician: Yuniel Herron Ordering Physician: Physician Non-Staff Primary Care Physician: Generic Doctor Not In System MEDICAL IMAGING REPORT This report is preliminary unless electronic signature is present EXAM Two views of the right femur. Date: 11/16/2016 HISTORY Right total hip replacement with a long femoral stem, 10/25/2016. Pain, unable to walk. COMPARISON 2 views of the right femur, 08/24/2016. FINDINGS Right total hip replacement changes with long femoral stem component redemonstrated. The prosthetic hip remains appropriately located. Periosteal reaction is seen adjacent to the proximal left femoral shaft adjacent to the site of presumed healing fracture. Fracture line does remain, although no new fracture is seen. Right knee replacement changes are redemonstrated. There is 0.5 cm anterior translation of the distal femur with respect to the proximal tibia, and heterotopic ossification is seen at the anterior margin of the knee joint space both superior and inferiorly. Suspected anterior joint effusion in the suprapatellar and infrapatellar regions, similar to prior. IMPRESSION 1. Proximal right femoral shaft fracture is stabilized by orthopedic cerclage wires. There is signs of increasing periosteal reaction or evolving callous formation particularly when compared to the 08/24/2016 examination, but fracture line does remain. 2. Anterior translation of the distal femoral condyles with respect to the tibial plateau in the knee, similar to prior exam. Right knee STS. [facility] A Service of [facility] RADIOLOGY TEXT RESULTS PATIENT: BANDAR SORENSEN LOCATION: [facility] #: [id number] : [birth year] UNIT #: [id number] AGE: [address]: ZINA BARAHONA SEX: F ORDER DR: replacement. Dictated by... Shameka Kyle M.D. THIS IS AN ELECTRONICALLY VERIFIED REPORT Shameka Kyle M.D. at 11/17/2016 2:10 PM JORDIN/stevenson TD: 11/16/2016 22:42 JOB #: [id number] MEDICAL IMAGING REPORT Page 1 of 1 COPY
== END | disposition home or self-care (01) ==
LOC: CRAD 12:35
DX: Z47.1 Aftercare following joint replacement surgery (principal); S72.301D Unspecified fracture of shaft of right femur, subsequent encounter for closed fracture with routine healing; Z96.641 Presence of right artificial hip joint
CPT/HCPCS: 73502; 73552

== ENCOUNTER → 2016-12-07 | Outpatient (CLI) | payer MEDICARE ==
--- NOTE | ~2016-12-07 | CR151 ---
[facility] A Service of [facility] RADIOLOGY TEXT RESULTS PATIENT: BANDAR SORENSEN [id number] : [birth year] UNIT #: [id number] AGE: [address]: Rashid Monzon MD SEX: F ORDER DR: [id number] [facility]. [place], [place] [address] [id number] O MR#: [id number] Acc #: [id number] NAME: BANDAR SORENSEN : 1950 SEX: F STUDY DATE/TIME: 12/07/2016 15:47 UNIT: [facility] ROOM: STUDY DESCRIPTION: CR Hip Min 2 Views Rt Attending Physician: Rashid Monzon M.D. Ordering Physician: Rashid Monzon M.D. Primary Care Physician: No Primary Care Physician MEDICAL IMAGING REPORT This report is preliminary unless electronic signature is present EXAM Right hip, 2 views. HISTORY Status post revision arthroplasty right hip. COMPARISON 11/16/16 FINDINGS AP and frog lateral views of the right hip submitted. The patient is status post apparent revision arthroplasty of the right hip with acetabular component in place with multiple superior screws and washers. The femoral component represents a long stem femoral component with multiple cerclage wires along the shaft of the proximal right femur with onlay bone graft noted along the lateral aspect of the proximal femur. Moderate amount of periostitis and calcification seen along the medial aspect of the proximal right femur. No definite fracture or loosening of instrumentation. Patient has undergone a left total hip arthroplasty with apparent limb salving femoral component. IMPRESSION 1. Status post revision arthroplasty of right hip with a long-stem femoral component and buttressing of the acetabular component. No evidence of periprosthetic fracture or loosening. 2. Continued calcification or periostitis along the medial aspect of the proximal right femur. Etiology unclear. No significant incorporation of the onlay bone graft along the lateral aspect of the right proximal femur. Dictated by.Lili Young M.D. [facility] A Service of [facility] RADIOLOGY TEXT RESULTS PATIENT: BANDAR SORENSEN [facility] [id number] : [birth year] UNIT #: [id number] AGE: [address]: Rashid Monzon MD SEX: F ORDER DR: THIS IS AN ELECTRONICALLY VERIFIED REPORT Garrett Young M.D. at 12/07/2016 10:07 PM [place] TD: 12/07/2016 21:16 JOB #: [id number] MEDICAL IMAGING REPORT Page 1 of 1 COPY
--- NOTE | ~2016-12-07 | CR107 ---
[facility] A Service of [facility] RADIOLOGY TEXT RESULTS PATIENT: BANDAR SORENSEN LOCATION: [facility] : 54 UNIT #: [id number] AGE: [address]: Rashid Monzon MD SEX: F ORDER DR: [id number] [facility]. [place], [place] [address] [id number] O MR#: [id number] Acc #: [id number] NAME: BANDAR SORENSEN : 1950 SEX: F STUDY DATE/TIME: 12/07/2016 15:50 UNIT: [facility] ROOM: STUDY DESCRIPTION: CR Femur 2 Views Rt Attending Physician: Rashid Monzon M.D. Ordering Physician: Rashid Monzon M.D. Primary Care Physician: Primary Care Physician No MEDICAL IMAGING REPORT This report is preliminary unless electronic signature is present EXAM Right femur, 2 views HISTORY Status post right total hip revision 10/25/2016, assess revision. COMPARISON 11/16/2016 FINDINGS Two views of the right femur demonstrates postoperative changes from a revision arthroplasty of the right hip. Acetabular and femoral components appear in expected position and alignment. Multiple cerclage wires are noted about the proximal right femur. Extensive periostitis or calcification is seen along the medial aspect of the right femur and there is a defect in the cortex on the medial distal femur may be related to bone graft or fracture. This appears less conspicuous or less prominent when compared to the 11/16/2016 study. There has also been some incorporation of the onlay bone graft along the lateral aspect of the femoral component. Right knee demonstrates changes of a right knee arthroplasty with a femoral component in place. Radiolucent tibial tray noted. Soft tissues are unremarkable. IMPRESSION Status post revision arthroplasty right hip with some interval healing and incorporation of bone graft along the medial and lateral aspects of the proximal femoral shaft. Dictated by... Garrett Young M.D. THIS IS AN ELECTRONICALLY VERIFIED REPORT [facility] A Service of [facility] RADIOLOGY TEXT RESULTS PATIENT: BANDAR SORENSEN LOCATION: [facility] #: [id number] : 54 UNIT #: [id number] AGE: [address]: Rashid Monzon MD SEX: F ORDER DR: Garrett Young M.D. at 12/07/2016 10:07 PM LAURA/dima TD: 12/07/2016 21:16 JOB #: [id number] MEDICAL IMAGING REPORT Page 1 of 1 COPY
== END | disposition home or self-care (01) ==
LOC: CRAD 14:50
DX: Z47.1 Aftercare following joint replacement surgery (principal); Z96.641 Presence of right artificial hip joint
CPT/HCPCS: 73502; 73552

== ENCOUNTER → 2016-12-30 | Outpatient (CLI) | payer MEDICARE ==
--- NOTE | ~2016-12-30 | CR151 ---
[facility] A Service of [facility] RADIOLOGY TEXT RESULTS PATIENT: BANDAR SORENSEN LOCATION: [facility] : 52 UNIT #: [id number] AGE: [address]: Rashid Monzon MD SEX: F ORDER DR: [id number] [facility] [address]. [place], [place] [address] [id number] O MR#: [id number] Acc #: [id number] NAME: BANDAR SORENSEN : 1950 SEX: F STUDY DATE/TIME: 12/30/2016 13:31 UNIT: [facility] ROOM: STUDY DESCRIPTION: CR Hip Min 2 Views Rt Attending Physician: Rashid Monzon M.D. Referring Physician: Rashid Monzon M.D. Ordering Physician: Rashid Monzon M.D. Primary Care Physician: Mare Langley M.D. MEDICAL IMAGING REPORT This report is preliminary unless electronic signature is present EXAM Right hip INDICATIONS Right hip pain status post revision of the total hip arthroplasty. FINDINGS AP view of the pelvis and frog-leg lateral view of the right hip. There has been revision of the patient's right total hip arthroplasty. Alignment is anatomic. No fracture or dislocation. There is some bony callus forming around the proximal femur fracture. IMPRESSION Anatomic alignment status post right hip revision. Dictated by... Keegan Díaz M.D. THIS IS AN ELECTRONICALLY VERIFIED REPORT Keegan Díaz M.D. at 01/01/2017 2:16 PM RPC/gill TD: 01/01/2017 12:48 JOB #: [id number] MEDICAL IMAGING REPORT Page 1 of 1 COPY
--- NOTE | ~2016-12-30 | CR107 ---
[facility] A Service of [facility] RADIOLOGY TEXT RESULTS PATIENT: BANDAR SORENSEN LOCATION: [facility] : 54 UNIT #: [id number] AGE: [address]: Rashid Monzon MD SEX: F ORDER DR: [id number] [facility]. [place], [place] [address] [id number] O MR#: [id number] Acc #: [id number] NAME: BANDAR SORENSEN : 1950 SEX: F STUDY DATE/TIME: 12/30/2016 13:32 UNIT: [facility] ROOM: STUDY DESCRIPTION: CR Femur 2 Views Rt Attending Physician: Rashid Monzon M.D. Referring Physician: Rashid Monzon M.D. Ordering Physician: Rashid Monzon M.D. Primary Care Physician: Mare Langley M.D. MEDICAL IMAGING REPORT This report is preliminary unless electronic signature is present EXAM Right femur INDICATIONS Right hip pain. Right hip revision. FINDINGS 2 views of the right femur compared to the right hip obtained the same day. The right total hip arthroplasty is anatomically aligned. Surgical hardware is unremarkable. Patient has a fracture through the proximal diaphysis of the right femur. There is some bony callus formation suggesting some osseous healing. Bone graft material is again noted. Articulation at the knee is abnormal with posterior subluxation of the tibia. This appearance is unchanged from 11/16/2016. Tibial component of the total knee arthroplasty may have been removed. IMPRESSION 1. Anatomic alignment of the right total hip arthroplasty. 2. Posterior subluxation of the tibia in relation to the femur. Dictated by... Keegan Díaz M.D. THIS IS AN ELECTRONICALLY VERIFIED REPORT Keegan Díaz M.D. at 01/01/2017 2:16 PM RPJoselyn/gill TD: 01/01/2017 12:49 JOB #: [id number] MEDICAL IMAGING REPORT [facility] A Service of [facility] RADIOLOGY TEXT RESULTS PATIENT: BANDAR SORENSEN LOCATION: [facility] #: [id number] : 54 UNIT #: [id number] AGE: [address]: Rashid Monzon MD SEX: F ORDER DR: Page 1 of 1 COPY
== END | disposition home or self-care (01) ==
LOC: CRAD 13:11
DX: Z47.32 Aftercare following explantation of hip joint prosthesis (principal); S83.121A Posterior subluxation of proximal end of tibia, right knee, initial encounter; Z96.641 Presence of right artificial hip joint
CPT/HCPCS: 73502; 73552